=== PATIENT | female | born 1990 | race African-American/Black ===

== ENCOUNTER 2017-06-22 11:09 | Emergency (ER) | payer MEDICAID ==
[~2017-06-22] VITALS: Ht 152.4 cm; Wt 55.0 kg
[2017-06-22] MEDS ORDERED: SODIUM CHLORIDE 0.9% 1,000 ML IV ONE (11:45)
[2017-06-22] MEDS ORDERED: KETOROLAC 15MG/ML VIAL IV ONE (11:45)
[2017-06-22 12:12] LABS: BASOPHILS % 0.5 % (0.0-2.0); EOSINOPHILS % 0.1 % (0.0-5.0); HEMATOCRIT. 30.7 % (36.0-48.0); HEMOGLOBIN. 9.9 g/dL (12.0-16.0); LYMPHOCYTES % 29.3 % (20.0-50.0); MEAN CORPUSCULAR HEMOGLOBIN 26.7 pg (28.0-32.0); MEAN CORPUSCULAR VOLUME 82.6 fL (81.0-99.0); MEAN PLATELET VOLUME 8.7 fl (7.4-10.4); MONOCYTES % 11.1 % (2.0-8.0); PLATELET 474 x1000/uL (130-400); RED BLOOD CELL COUNT 3.72 mill/uL (4.2-5.4); RED CELL DISTRIBUTION WIDTH 17.6 % (11.6-14.6)
[2017-06-22 12:18] LABS: CHLORIDE 98 mEq/L (98-107)
[2017-06-22 12:26] LABS: CARBON DIOXIDE 28 mEq/L (21-32)
[2017-06-22] MEDS ORDERED: IBUPROFEN 100MG/5ML UDC PO ONE (13:15)
[2017-06-22 14:09] VITALS: BP 109/72
== END 2017-06-22 14:41 | disposition home or self-care (01) ==
LOC: ER 11:14
DX: J06.9 Acute upper respiratory infection, unspecified (principal)
CPT/HCPCS: 36415; 71045; 80053; 81025; 85025; 87070; 87430; 87804; 93005; 96361; 96374; 99285; J1885; J7030; Z7610

== ENCOUNTER 2018-02-23 09:19 | Emergency (ER) | payer MEDICAID ==
[~2018-02-23] VITALS: Ht 152.4 cm; Wt 55.0 kg
[2018-02-23] MEDS ORDERED: CEFTRIAXONE 1 G PREMIX 50 ML IV ONE (11:45)
[2018-02-23] MEDS ORDERED: IBUPROFEN 600MG TABLET PO ONE (11:45)
[2018-02-23] MEDS ORDERED: DEXAMETHASONE 10 MG/ML VIAL IV ONE (11:45)
[2018-02-23 13:45] VITALS: BP 118/71
== END 2018-02-23 13:49 | disposition home or self-care (01) ==
LOC: ER 09:19
DX: J02.0 Streptococcal pharyngitis (principal); Z88.6 Allergy status to analgesic agent
CPT/HCPCS: 87430; 96365; 96375; 99284; J0696; J1100; Z7610